=== PATIENT | female | born 2000 | race Caucasian/White ===

== ENCOUNTER 2020-12-17 01:51 | Emergency (ER) | payer SELFPAY ==
[2020-12-17] MEDS ORDERED: Proparacaine 0.5% Opth 15 ML BOT ONE (02:11)
== END 2020-12-17 02:14 | disposition home or self-care (01) ==
LOC: CSHERS 01:51
DX: H65.91 Unspecified nonsuppurative otitis media, right ear (principal)
CPT/HCPCS: 99282